=== PATIENT | female | born 1980 | race Two or more races ===

== ENCOUNTER 2023-07-13 14:56 | Emergency (ER) | payer OTHER ==
[~2023-07-13] VITALS: Ht 149.9 cm; Wt 54.4 kg
[2023-07-13] MEDS ORDERED: CHILDREN'S5 MG/5 M1 PO (15:41)
[2023-07-13] MEDS ORDERED: LEVOTHYROXINE25 MCG PO (15:41)
[2023-07-13] MEDS ORDERED: CALTRATE 600 +1 EAC1 PO (15:41)
[2023-07-13 19:10] LABS: HEMATOCRIT 35.2 % (36.0-45.00); HEMOGLOBIN 11.6 g/dL (12.0-15.00); MEAN CELL VOLUME 81.1 fL (80.00-100.00); MEAN CORPUSCULAR HEMOGLOBIN 26.8 pg (27.00-32.0); PLATELET COUNT 156 K/uL (150-450); RED BLOOD COUNT 4.34 M/uL (4.00-6.00); RED CELL DISTRIBUTION WIDTH 13.1 % (11.5-14.5)
[2023-07-13] MEDS ORDERED: ZYRTEC10 MG PO (22:42)
== END 2023-07-13 23:25 | disposition home or self-care (01) ==
LOC: ER 14:57
PROVIDERS: Nurse Practitioner Family
DX: J02.9 Acute pharyngitis, unspecified (principal); H92.01 Otalgia, right ear; E03.9 Hypothyroidism, unspecified; Z91.040 Latex allergy status; Z91.048 Other nonmedicinal substance allergy status; Z20.822 Contact with and (suspected) exposure to COVID-19